=== PATIENT | female | born 1990 | race Caucasian/White ===

== ENCOUNTER 2024-06-21 11:06 | Inpatient (IN) | payer BC ==
[2024-06-21] MEDS ORDERED: TRANEXAMIC 1,000 MG/100ML-NACL 1,000 MG in EMPTY BAG 1 BAG IV PRN (13:01)
[2024-06-21] MEDS ORDERED: miSOPROStoL 200 MCG TAB PO PRN (13:01)
[2024-06-21] MEDS ORDERED: METHYLERGONOVINE 0.2 MG/ML 1 ML AMP IM PRN (13:01)
[2024-06-21] MEDS ORDERED: LIDOCAINE 0.5% (PF) 5 MG/ML (50 ML SDV) SQ PRN (13:01)
[2024-06-21] MEDS ORDERED: CARBOPROST TROMETHAMINE 250 MCG/ML 1 ML AMP IM PRN (13:01)
[2024-06-21] MEDS ORDERED: miSOPROStoL 200 MCG TAB RECTAL PRN (13:01)
[2024-06-21] MEDS ORDERED: OXYTOCIN 10 UNIT/ML 1 ML VIAL IM PRN (13:01)
[2024-06-21] MEDS ORDERED: TERBUTALINE 1 MG/ML VIAL SQ PRN (13:01)
[2024-06-21 13:15] LABS: Basophils % (A) 0 %; Eosinophils % (A) 0 %; HGB 12.8 gm/dL (11.4-16.0); Lymphocytes # (A) 1.1 k/uL (1.0-4.8); Lymphocytes % (A) 9 %; MCH 29.9 pg (25.0-35.0); MCHC 31.9 g/dL (31.0-37.0); MCV 93.8 fL (80.0-100.0); Mean Platelet Volume 10.9; Monocytes # (A) 0.3 k/uL (0-1.0); Monocytes % (A) 2 %; Neutrophils # (A) 10.3 k/uL (1.3-7.7); Neutrophils % (A) 88 %; Platelet Count 205 k/uL (150-450); RBC 4.27 m/uL (3.80-5.40); RDW 13.1 % (11.5-15.5); WBC 11.7 k/uL (3.8-10.6)
[2024-06-21] MEDS ORDERED: OXYTOCIN 30 UNITS/500 ML NS 30 UNIT in SALINE 1 500ML.BAG IV SCH (13:15)
[2024-06-21] MEDS: BUTORPHANOL 1 MG/ML 1 ML VIAL IV PRN (13:50)
[2024-06-21] MEDS: LACTATED RINGERS 1,000 ML IV SCH (13:53)
--- NOTE | 2024-06-21 13:53 | P.HPOB ---
History of Present Illness H&P Date: 06/21/24 Chief Complaint: 40-2/7 weeks, active labor Patient is a 33-year-old 2 para 0-0-1-0 admitted at 40-2/7 weeks as established by last menstrual period and confirmed by 13-week ultrasound. She is admitted for active management of labor as her cervix was found to be 5 to 6 cm in triage. Her has been entirely uncomplicated and group B strep status is negative. On labor and delivery, all signs are reassuring with a category 1 heart rate tracing. Obstetrical history: 2 para 0-0-1-0 with current statistics listed in history of present illness. EDC of 06/19/2024 was established by last menstrual period and confirmed by 13-week ultrasound. Laboratory workup demonstrates a blood type of A+ with a negative antibody screen. Rubella status is immune. The remainder of the laboratory workup was within normal limits. 1 hour Glucola is normal and group B strep status is negative. Gynecologic history: Unremarkable with no history of any infections to include STDs. Review of Systems Review of systems is confined to history of present illness. Past Medical History History of Any Multi-Drug Resistant Organisms: None Reported Smoking Status: Never smoker Medications and Allergies Home Medications Medication Instructions Recorded Confirmed Type Aspirin [Children's Aspirin] 81 mg PO DAILY 06/21/24 06/21/24 History Vit No.179/Iron/Folic 1 each PO DAILY 06/21/24 06/21/24 History [ Tablet] Allergies Allergy/AdvReac Type Severity Reaction Status Date / Time No Known Allergies Allergy Verified 06/21/24 11:17 Exam Vital Signs Temp Pulse Resp BP 06/21/24 11:17 97.2 F L 71 14 121/78 Intake and Output 06/20/24 06/21/24 06/21/24 22:59 06:59 14:59 Other: Weight 87.09 kg In general, this is a well-developed, well-nourished white female in no acute distress. Her heart has a regular rhythm and rate without murmur. Her lungs are clear to auscultation bilaterally in all [place]. Her abdomen is gravid, nondistended, has normal active bowel sounds, soft, nontender, and without any palpable masses aside from the uterine fundus. Her extremities are without any cyanosis, clubbing, or edema and are nontender to palpation bilaterally. Digital cervical examination demonstrates her cervix to be 6 to 7 cm dilated, 90% effaced, with the vertex and presentation at 0 station. Artificial rupture of membranes is carried out demonstrating moderate to thick meconium stained fluid. Results Result Diagrams: 06/21/24 13:00 Abnormal Lab Results - Last 24 Hours (Table) 06/21/24 Range/Units 13:00 WBC 11.7 H (3.8-10.6) k/uL Neutrophils # 10.3 H (1.3-7.7) k/uL Assessment and Plan (1) Meconium in amniotic fluid affecting management of mother Current Visit: Yes Status: Acute Code(s): O36.8990 - MATERNAL CARE FOR OTH PROBLEMS, UNSP TRIMESTER, UNSP SNOMED Code(s): 92963393 (2) Active labor at term Current Visit: Yes Status: Acute Code(s): LXQ4425 - SNOMED Code(s): 88569543 Plan: Patient is admitted for active management of labor. She has had artificial rupture of membranes carried out. Should there be no advancing of labor over the next hour, Pitocin augmentation will be added. She will have close maternal and surveillance and expectant management will be practiced. She is a good candidate for either IV or epidural analgesia, which ever she may choose.
[2024-06-21] MEDS: OXYTOCIN 30 UNITS/500 ML NS 30 UNIT in SALINE 1 500ML.BAG IV SCH (14:56)
[2024-06-21] MEDS ORDERED: BENZOCAINE/MENTHOL SPRAY 1 GM/SPRAY AEROSOL TOPICAL PRN (17:10)
[2024-06-21] MEDS ORDERED: ZOLPIDEM 5 MG TAB PO PRN (17:10)
[2024-06-21] MEDS ORDERED: LANOLIN CREAM 1 GM TUBE TOPICAL PRN (17:10)
[2024-06-21] MEDS ORDERED: diphenhydrAMINE 25 MG CAP PO PRN (17:10)
[2024-06-21] MEDS ORDERED: HYDROCORTISONE 2.5% RECTAL CREAM 30 GM TUBE RECTAL PRN (17:10)
[2024-06-21] MEDS ORDERED: diphenhydrAMINE 50 MG CAP PO PRN (17:10)
[2024-06-21] MEDS ORDERED: SIMETHICONE 80 MG CHEWABLE PO PRN (17:10)
[2024-06-21] MEDS ORDERED: diphenhydrAMINE 50 MG/ML 1 ML VIAL IVP PRN ×2 (17:10)
--- NOTE | 2024-06-21 17:14 | P.PROBDLV ---
Vaginal Delivery Note - . Vaginal Delivery Note: Patient is a 33-year-old 2 para 0-0-1-0 admitted at 40-2/7 weeks by good dating parameters. She is admitted in active labor with all signs reassuring, category 1 heart rate tracing. Her has been essentially entirely uncomplicated and she was scheduled for induction later this week. On labor and delivery, she underwent artificial rupture of membranes demonstrating moderate to thick meconium stained fluid in the presence of a category 1 heart rate tracing. She made progress on her own without any augmentation to complete and then pushed over the course of approximately 20 to 30 minutes to a normal spontaneous vaginal delivery of a viable 6 pound 13 ounce baby boy with Apgars of 9 at 1 minute and 9 at 5 minutes delivered in the direct occiput anterior position. There were 2 loose nuchal cords which were reduced after delivery of the . The nose and mouth were thoroughly suctioned both on the perineum and immediately after delivery and prior to any vigorous cries. The placenta was then delivered spontaneously, intact, and grossly normal though it was relatively small with a grossly normal three-vessel cord inserted approximately 2 cm from the margin of the placental disc. There were no significant lacerations of the perineum, vagina, or cervix. She did have a first-degree right labial/periurethral laceration which was not bleeding and not repaired. Estimated blood loss for the case was approximately 300 mL. There were no complications. All sponge, instrument, and needle counts were correct. Both mother and infant are resting comfortably in recovery.
[2024-06-21] MEDS: IBUPROFEN 800 MG TAB PO PRN (17:26)
[2024-06-21] MEDS: SENNOSIDES-DOCUSATE SODIUM 1 EACH TAB PO SCH (21:29)
[2024-06-21] MEDS: ACETAMINOPHEN TAB 500 MG TAB PO PRN (21:33)
[2024-06-21] MEDS: METHYLERGONOVINE 0.2 MG/ML 1 ML AMP IM ONE (22:17)
[2024-06-22 06:43] LABS: Basophils % (A) 0 %; Eosinophils # (A) 0.2 k/uL (0-0.7); Eosinophils % (A) 1 %; HGB 11.5 gm/dL (11.4-16.0); Lymphocytes # (A) 1.9 k/uL (1.0-4.8); Lymphocytes % (A) 15 %; MCV 93.9 fL (80.0-100.0); Mean Platelet Volume 11.5; Monocytes # (A) 0.3 k/uL (0-1.0); Monocytes % (A) 3 %; Neutrophils # (A) 10.2 k/uL (1.3-7.7); Neutrophils % (A) 80 %; RBC 3.83 m/uL (3.80-5.40); RDW 13.2 % (11.5-15.5); WBC 12.8 k/uL (3.8-10.6)
--- NOTE | 2024-06-22 08:36 | P.DS ---
Providers Date of admission: 06/21/24 12:44 Expected date of discharge: 06/22/24 Attending physician: Bora Adkins Primary care physician: Stated None - Discharge Diagnosis(es) (1) Meconium in amniotic fluid affecting management of mother Current Visit: Yes Status: Acute (2) Active labor at term Current Visit: Yes Status: Acute (3) Normal spontaneous vaginal delivery Current Visit: Yes Status: Acute Hospital Course: The patient is a 33-year-old 2 para 0-0-1-0 admitted at 40-2/7 weeks by good dating parameters. She is admitted in active labor with all signs reassuring. Her was uncomplicated and group B strep status is negative. On labor and delivery, she had a category 1 heart rate tracing. She underwent artificial rupture of membranes for moderate to thick meconium stained fluid but remained with category 1 heart rate tracing. She progressed to complete and then pushed fairly quickly to a normal spontaneous vaginal delivery of a viable 6 pound 13 ounce baby boy with Apgars of 9 at 1 minute and 9 at 5 minutes. Her course was unremarkable with vital signs remaining stable and her temperature was afebrile throughout. She was deemed stable for discharge on day #1 was discharged home to follow- up in the office in 6 weeks time routinely. Discharge instructions included calling for any significantly increased bleeding or foul-smelling lochia, significantly increased fever or abdominal pain, perineal complaints, breast complaints, or anything else that concerned her. She was additionally instructed to have nothing in the vagina for at least 6 weeks time to include intercourse. She understood her instructions and agrees to follow-up as noted above. Discharge medications included continued vitamins as she has opted to breast-feed. She was otherwise to use [id number] analgesic pain medications. Maternal blood type is a positive and rubella status is immune. Procedures: 1. Artificial rupture of membranes #2. Normal spontaneous vaginal delivery Patient Condition at Discharge: Stable Plan - Discharge Summary New Discharge Prescriptions: No Action Aspirin [Children's Aspirin] 81 mg PO DAILY Vit No.179/Iron/Folic [ Tablet] 1 each PO DAILY Discharge Medication List Aspirin [Children's Aspirin] 81 mg PO DAILY 06/21/24 [History] Vit No.179/Iron/Folic [ Tablet] 1 each PO DAILY 06/21/24 [History] Follow up Appointment(s)/Referral(s): Bora Adkins MD [STAFF PHYSICIAN] - 6 Weeks Discharge Disposition: HOME SELF-CARE
[2024-06-22 10:25] LABS: Platelet Count 177 k/uL (150-450)
[2024-06-22 10:32] VITALS: RESP 14
[2024-06-23 12:55] VITALS: BP 124/82; PULSE 67; TEMP 96.7
--- NOTE | 2024-06-24 08:29 | CDI ---
Documentation Clarification Form Date: 06/24/2024 From: Merary Pina Admit Date: 06/21/2024 12:44:00 PM Patient Name: Cristine Boudreaux Visit Number: [id number] Discharge Date: 06/22/2024 06:24:00 PM ATTENTION: The Clinical Documentation Specialists (CDI) and [facility] Coding Staff appreciate your assistance in clarifying documentation. Please respond to the clarification below the line at the bottom and electronically sign. The CDI & [facility] Coding staff will review the response and follow-up if needed. Please note: Queries are made part of the Legal Health Record. If you have any questions, please contact the author of this message via ITS. Doctor/Provider: Bora Adkins, There is documentation of blood trickling in toilet. RN assisted patient back to be and assessed fundus which was boggy. Per Nurses Notes on 06/21 at 2205. Delivery on 06/21 at 1646. Additional clarification is requested. History/Risk Factors: Post-tern=m at 40-2/7 weeks, Group B strep is negative. Clinical Indicators: Blood trickling in toilet. RN assisted patient back to be and assessed fundus which was boggy. Treatment: Discussed with Dr. Roberto, orders for Methergine and infuse bag of Pitocin. Can you please clarify [fill in the question? [ ] Atony of uterus with immediate hemorrhage [ x ] Other, please specify [ ] Unable to determine Uterine atony without hemorrhage, responded immediately to treatment. NALLELYD
== END 2024-06-22 18:24 | disposition home or self-care (01) | DRG 807 ==
LOC: FBPOP 11:06 → 4FBP 12:44
PROVIDERS: ADMIT Obstetrics & Gynecology; ATTEND Obstetrics & Gynecology
PROC: 10E0XZZ Delivery of Products of Conception, External Approach (ICD-10-PCS; principal; 2024-06-21)
PROC: 0HQ9XZZ Repair Perineum Skin, External Approach (ICD-10-PCS; 2024-06-21)
PROC: 10907ZC Drainage of Amniotic Fluid, Therapeutic from Products of Conception, Via Natural or Artificial Opening (ICD-10-PCS; 2024-06-21)
PROC: 0UQMXZZ Repair Vulva, External Approach (ICD-10-PCS; 2024-06-21)
PROC: 4A0HXCZ Measurement of Products of Conception, Cardiac Rate, External Approach (ICD-10-PCS; 2024-06-21)
DX: O76 Abnormality in fetal heart rate and rhythm complicating labor and delivery (principal); Z37.0 Single live birth; O69.81X0 Labor and delivery complicated by cord around neck, without compression, not applicable or unspecified; O75.89 Other specified complications of labor and delivery; O77.0 Labor and delivery complicated by meconium in amniotic fluid; O71.82 Other specified trauma to perineum and vulva; O70.0 First degree perineal laceration during delivery; O70.1 Second degree perineal laceration during delivery; Z3A.40 40 weeks gestation of pregnancy; Z79.82 Long term (current) use of aspirin
CPT/HCPCS: 59025; 85025; 86850; 86900; 86901; 99213